=== PATIENT | female | born 1935 | race Caucasian/White ===

== ENCOUNTER 2019-07-19 06:37 | Outpatient (CLI) | payer MEDICARE, SELFPAY | END 2019-07-19 06:38 | disposition home or self-care (01) | PROVIDERS: Visit Provider Internal Medicine Endocrinology, Diabetes & Metabolism | DX: R94.7 Abnormal results of other endocrine function studies (principal) | CPT/HCPCS: 36415; 82533; 96372; J0834 ==

== ENCOUNTER 2019-11-03 16:19 | Emergency (ER) | payer MEDICARE, SELFPAY ==
[2019-11-03] VITALS (13 sets, daily range): BP systolic 145–179; BP diastolic 80–109; PULSE 61–89; RESP 12–20; TEMP 36.7–36.9; O2SAT 93–98
--- NOTE | ~2019-11-03 | CT_ITS ---
EXAMINATION: CT brain wo [facility] EXAM DATE: 11/03/2019 19:25 INDICATION: Headache, history of high blood pressure. TECHNIQUE: Spiral CT of the head was performed without contrast. Axial, coronal and sagittal images were reviewed. The dose-length product (DLP) for this examination was 605.33 mGy-cm. The exposure w as tailored according to patient size, and iterative reconstruction (ASIR) was used as additional dos e reduction technique. Comparison is made to prior examination from 03/26/2018. FINDINGS: There is no acute intraparenchymal hemorrhage. No evidence of intraparenchymal brain mass lesion. No evidence of acute infarction. Please note that initial head CT has limited sensitivity f or small or acute infarctions. There is mild periventricular and subcortical hypodensity, nonspecific but probably related to small vessel ischemic disease. There is moderate prominence of the sulci a nd ventricles related to cerebral atrophy. There is intracranial carotid arteriosclerosis. There a re no extra-axial collections. There is no mass effect or midline shift. Patient has had bilateral ocular lens surgery. Soft tissue is unremarkable. The visualized sinuses and mastoid air cells are well aerated. IMPRESSION: 1. No acute intracranial findings. 2. Chronic age related findings. Reviewed, dictated and finalized at location A.
--- NOTE | 2019-11-03 16:32 | ECG_ITS ---
Measurements Intervals [place] Rate: 80 P: 54 MS: 151 QRS: -6 QRSD: 86 T: 22 QT: 340 QTc: 393 Interpretive Statements SINUS RHYTHM WITH MARKED SINUS ARRHYTHMIA BASELINE ARTIFACT- I, III, AVL BORDERLINE ECG Electronically Signed On 11-03-2019 20:12:48 CDT by Nicolás Escobar D.O.
--- NOTE | 2019-11-03 18:24 | ED.RECABL ---
HPI - Recheck/Abnormal Lab/Rx General Chief Complaint: Recheck/Abnormal Lab/Rx Stated Complaint: feels off nausea, elevated bp Time Seen by Provider: 11/03/19 18:10 Source: patient Mode of arrival: ambulatory Limitations: no limitations History of Present Illness HPI narrative: This is a 84 year old female that presents to the ER for hypertension. Reports she was recently started on Losartan for hypertension. Reports she had been doing well and was taking her medication daily. Reports today her blood pressure has been elevated into the 160s/90s. Reports she has also had a headache. She has not taken anything for her headache. Denies fever, chest pain, shortness of breath, edema, vision changes, vomiting, numbness or weakness. Related Data Home Medications Medication Instructions Recorded Confirmed acidophilus-pectin, citrus cap PO 11/03/19 [Acidophilus Probiotic] albuterol sulfate 2 puff INHALATION QID 11/03/19 alendronate-vitamin D3 11/03/19 11/03/19 docosahexaenoic acid [Algal mg PO 11/03/19 [place]-3 DHA] fluticasone furoate-vilanterol 1 inh INHALATION DAILY 11/03/19 [Breo Ellipta] levothyroxine [Synthroid] 50 mcg PO DAILY 11/03/19 liothyronine 5 mcg PO DAILY 11/03/19 losartan 50 mg PO DAILY 11/03/19 montelukast 10 mg PO DAILY 11/03/19 sqhyiwketamx-yjf-tmrn-FA-vit K tablet PO 11/03/19 [Adults Multivitamin] prasterone (dhea) [DHEA] 25 mg PO DAILY 11/03/19 vitamin B complex 1 tablet PO DAILY 11/03/19 11/03/19 Allergies Allergy/AdvReac Type Severity Reaction Status Date / Time No Known Allergies Allergy Verified 03/18/18 07:53 Review of Systems Review of Systems: Narrative: CONSTITUTIONAL: Denies fever EYES: Denies visual changes CARDIOVASCULAR: Denies chest pain or edema RESPIRATORY: Denies shortness of breath GASTROINTESTINAL: Denies vomiting NEUROLOGIC: Reports headache. Denies numbness, or weakness. All systems reviewed & are unremarkable except as noted in HPI and below PMFSH Past Medical History Medical History (Updated 11/03/19 @ 20:08 by Awa Lawrence PA-C) History of hypertension History of hypothyroidism Exam Narrative: Exam Narrative: GENERAL: Elderly, well-nourished, and in no acute distress. HEAD: Normocephalic, atraumatic. EYES: PERRLA and EOMI. ENT: Nares clear, no rhinorrhea or epistaxis. Mucous membranes moist. Oropharynx without tonsillar hypertrophy exudate or other lesions. Bilateral TMs pearly hadley non-bulging NECK: Supple. No adenopathy or masses. CHEST: Clear to auscultation. No respiratory distress. No wheezes rales or rhonchi HEART: Regular rate and rhythm. No murmur heard. Normal peripheral pulses. EXTREMITIES: Normal range of motion. No edema. Strength equal in bilateral upper and lower extremities (5/5) SKIN: Warm, dry, no rash. NEURO: No focal deficits. Alert and oriented x3. Cranial nerves II through XII grossly intact. Normal [id number] PSYCH: Normal mood and affect Course Vital Signs Vital signs: Vital Signs Temperature 98.5 F 11/03/19 16:30 Pulse Rate 85 11/03/19 16:30 Respiratory Rate 20 11/03/19 16:30 Blood Pressure 179/109 H 11/03/19 16:30 Pulse Oximetry 97 11/03/19 16:30 Temperature 98.5 F 11/03/19 16:30 Pulse Rate 64 11/03/19 19:41 Respiratory Rate 16 11/03/19 19:41 Blood Pressure 153/90 H 11/03/19 19:41 Pulse Oximetry 96 11/03/19 19:41 MDM - Recheck/Abnormal Lab/Rx MDM Narrative Medical decision making narrative: Patient presents the emergency department for hypertension. Also reporting a headache today. Patient was recently started on losartan. On arrival blood pressure 180s/100s. This improved after dose of labetalol. Most recent blood pressure 153/90. Patient also given Tylenol and Toradol with relief of headache. Patient is afebrile and nontoxic-appearing. She is neurologically intact. CBC and metabolic panel without concerning findings. CT scan of the brain is without acute findings
[2019-11-03 18:35] LABS: Basophils Percent Auto 0.5 % (0.2-1.2); Eosinophils Absolute Auto 0.4 K/mm3 (0-0.3); Eosinophils Percent Auto 6.9 % (0-4.4); Hematocrit 41.5 % (37.0-47.0); Hemoglobin 13.5 g/dL (12.0-15.0); Immature Granulocyte Absolute 0.01 K/mm3 (0.00-0.031); Immature Granulocyte Percent A 0.2 % (0-0.5); Lymphocytes Absolute Auto 1.46 K/mm3 (0.9-3.2); Lymphocytes Percent Auto 23.6 % (18.3-44.2); Mean Corpuscular HGB Conc 32.5 g/dl (32-36); Mean Corpuscular Hemoglobin 29.9 pg (26-34); Mean Corpuscular Volume 91.8 fl (80-100); Mean Platelet Volume 9.4 fl (7.4-10.4); Monocytes Absolute Auto 0.5 K/mm3 (0.1-0.6); Monocytes Percent Auto 7.9 % (2.6-8.5); Neutrophils Absolute Auto 3.8 K/mm3 (1.3-6.7); Neutrophils Percent Auto 60.9 % (45.5-73.1); Platelet Count Result 288 k/mm3 (150-375); Red Blood Count 4.52 M/mm3 (4.2-5.4); Red Cell Distribution Width 12.4 % (11.5-14.5); White Blood Count 6.2 K/mm3 (4.5-10.0)
[2019-11-03] MEDS: LABETALOL HCL INJ 100 MG/20 ML VIAL 20 MG IV PUSH (18:35)
[2019-11-03] MEDS: KETOROLAC 30 MG/ML VIAL (*BKC) (18:35)
[2019-11-03 18:48] LABS: Anion Gap 8 mmol/L (8-16); Blood Urea Nitrogen 18 mg/dL (7-17); Calcium 9.3 mg/dL (8.4-10.2); Carbon Dioxide 25 mmol/L (22-30); Chloride 102 mmol/L (98-107); Estimated CRCL calculation 40 ml/min; Estimated Glomerular Filt Rate 60; Glucose 84 mg/dL (65-105); Potassium 4.5 mmol/L (3.4-5.0); Sodium 135 mmol/L (137-145)
== END 2019-11-03 20:16 | disposition home or self-care (01) ==
PROVIDERS: Physician Assistant; Emergency Provider Emergency Medicine; PCP Nurse Practitioner Family
DX: I10 Essential (primary) hypertension (principal); R51 Headache; E03.9 Hypothyroidism, unspecified
CPT/HCPCS: 36415; 70450; 80048; 85025; 93005; 96374; 96375; 99284; J0131; J1885

== ENCOUNTER 2020-08-26 17:37 | Emergency (ER) | payer MEDICARE, SELFPAY ==
[2020-08-26] VITALS (9 sets, daily range): BP systolic 138–198; BP diastolic 63–113; PULSE 66–92; RESP 13–16; O2SAT 95–99
--- NOTE | ~2020-08-26 | CT_ITS ---
EXAMINATION: CT brain wo con DATE: 08/26/2020 18:54 INDICATION: Dizziness. Vertigo. Nausea and vomiting. TECHNIQUE: Computed tomography (CT) of the head was performed without intravenous contrast. The mA wa s adjusted according to patient size. Iterative reconstruction technique was employed. Exam dose: 60 5.33 mGy-cm total exam DLP. COMPARISON: 11/03/2019 CT brain FINDINGS: Bilateral carotid siphon internal carotid artery calcifications. There is nonspecific dimin ished attenuation of the cerebral white matter, likely due to chronic small vessel ischemic changes. No intracranial mass lesion or hemorrhage or recent cerebrovascular accident is evident. No midline s hift or mass effect effect. No subdural or epidural hematoma. No fracture or bone destruction of the cranial vault. No significant abnormality of the paranasal sinuses or mastoid air cells and included in the examinat ion. No fracture or bone destruction of the cranial vault. IMPRESSION: Cerebral atherosclerosis and chronic small vessel ischemic changes of the cerebral white matter No acute intracranial finding or significant change since 11/03/2019 Reviewed, dictated and finalized at [facility]. Reviewed, dictated and finalized at location A.
--- NOTE | ~2020-08-26 | CT_ITS ---
EXAMINATION: CT abdomen pelvis wo con DATE: 08/26/2020 18:54 INDICATION: Left abdominal pain, nausea, vomiting TECHNIQUE: Computed tomography (CT) of the abdomen and pelvis was performed without intravenous contr ast. Automated exposure control and iterative reconstruction technique were employed. Exam dose: 600 .96 mGy-cm total exam DLP. COMPARISON: None. 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 Discoid scarring in the right lower lobe and base of the lingula. No consolidation at the lung bases. Heart size is within normal range. No pericardial or pleural effusion. The liver, gallbladder, bile ducts, spleen, pancreas, pancreatic duct and adrenal glands are unremark able. No urinary tract calculus or hydroureteronephrosis. There is extensive calcification of the abdominal aorta but no aneurysm. No intraperitoneal or retrop eritoneal or pelvic mass lesion or adenopathy or ascites. The uterus is unremarkable. Status post hysterectomy. No bowel obstruction, bowel wall thickening, pneumatosis or intraperitoneal free air is evident. Mild anterior wedge compression fracture deformity of T10. Multilevel degenerative disc disease most pronounced at L2-3, L4-5 and particularly L5-S1. There is grade 1 anterolisthesis at L4-5 due to degenerative change at the apophyseal joints. Diffuse osteopenia. Bilateral hip osteoarthritis, more prominent on the left. IMPRESSION: Status post hysterectomy Reviewed, dictated and finalized at [facility]. Reviewed, dictated and finalized at location A. IMPRESSION: Status post hysterectomy
--- NOTE | 2020-08-26 18:05 | ECG_ITS ---
Measurements Intervals [place] Rate: 77 P: 55 OR: 153 QRS: 11 QRSD: 94 T: 43 QT: 373 QTc: 423 Interpretive Statements SINUS RHYTHM EARLY PRECORDIAL R/S TRANSITION BASELINE ARTIFACT- I, II, AVR, AVL, AVF, V1 BORDERLINE ECG Electronically Signed On 08-27-2020 7:36:57 CDT by Nicolás Escobar D.O.
[2020-08-26 18:24] LABS: Basophils Percent Auto 0.5 % (0.2-1.2); Eosinophils Absolute Auto 0.2 K/mm3 (0-0.3); Eosinophils Percent Auto 2.6 % (0-4.4); Hemoglobin 12.5 g/dL (12.0-15.0); Immature Granulocyte Absolute 0.03 K/mm3 (0.00-0.031); Immature Granulocyte Percent A 0.4 % (0-0.5); Lymphocytes Percent Auto 12.6 % (18.3-44.2); Mean Corpuscular HGB Conc 32.1 g/dl (32-36); Mean Corpuscular Hemoglobin 30.2 pg (26-34); Mean Corpuscular Volume 94.2 fl (80-100); Mean Platelet Volume 8.6 fl (7.4-10.4); Monocytes Absolute Auto 0.6 K/mm3 (0.1-0.6); Monocytes Percent Auto 7.7 % (2.6-8.5); Neutrophils Absolute Auto 6.1 K/mm3 (1.3-6.7); Neutrophils Percent Auto 76.2 % (45.5-73.1); Platelet Count Result 259 k/mm3 (150-375); Red Blood Count 4.14 M/mm3 (4.2-5.4); Red Cell Distribution Width 12.9 % (11.5-14.5)
[2020-08-26 18:36] LABS: Alanine Aminotransferase 18 U/L (4-35); Albumin Level 4.6 g/dL (3.5-5.1); Alkaline Phosphatase 53 U/L (38-126); Anion Gap 10 mmol/L (8-16); Aspartate Amino Transferase 31 U/L (14-36); Bilirubin,Total 0.9 mg/dL (0.2-1.3); Blood Urea Nitrogen 25 mg/dL (7-17); Calcium 9.6 mg/dL (8.4-10.2); Carbon Dioxide 25 mmol/L (22-30); Chloride 104 mmol/L (98-107); Estimated CRCL calculation 39 ml/min; Estimated Glomerular Filt Rate 43; Glucose 104 mg/dL (65-105); Lipase 119 U/L (23-300); Potassium 4.2 mmol/L (3.4-5.0); Sodium 139 mmol/L (137-145)
[2020-08-26] MEDS: ONDANSETRON INJ 4 MG/2 ML VIAL IV PUSH (18:40)
[2020-08-26] MEDS: SODIUM CHLORIDE 0.9% IV 1,000 ML 999 ML IV CONT (18:41)
--- NOTE | 2020-08-26 18:41 | ED.GENADULT ---
HPI - General Adult General Chief complaint: Nausea/Vomiting/Diarrhea Stated complaint: dizzy/nauseated Time Seen by Provider: 08/26/20 18:04 Source: patient, family and RN notes reviewed Limitations: no limitations History of Present Illness HPI narrative: Patient is 85 years old white female presented to the ED with her son complaining of sudden onset of massive diarrhea x1 episode early this morning. 1 hour prior to arrival to the emergency room patient got up to go to the bathroom suddenly developed severe dizziness, spinning, associated with nausea, diaphoresis and epigastric pain lasted for 45 minutes then resolved. Currently patient is asymptomatic. Patient is denying any fever, chills, chest pain, shortness of breath, back pain or headache. Patient denies focal neuro deficit Related Data Home Medications Medication Instructions Recorded Confirmed albuterol sulfate 2 puff INHALATION QID 11/03/19 02/16/20 alendronate-vitamin D3 11/03/19 02/16/20 fluticasone furoate-vilanterol 1 inh INHALATION DAILY 11/03/19 02/16/20 [Beny Guerra] montelukast 10 mg PO DAILY 11/03/19 02/16/20 vitamin B complex 1 tablet PO DAILY 11/03/19 02/16/20 aspirin 81 mg chewable tablet 81 mg PO DAILY 12/13/19 02/16/20 rosuvastatin 5 mg tablet 5 mg PO DAILY 12/13/19 02/16/20 amlodipine 5 mg tablet 5 mg PO DAILY 02/16/20 02/16/20 levothyroxine 75 mcg tablet 75 mcg PO DAILY 02/16/20 02/16/20 Allergies Allergy/AdvReac Type Severity Reaction Status Date / Time No Known Allergies Allergy Verified 08/26/20 18:03 Review of Systems Review of Systems: Narrative: CONSTITUTIONAL: Denies fever, chills, or sweats. EYES: Denies visual changes, redness, or discharge. ENT: Denies rhinorrhea, congestion, sore throat, or otalgia. CARDIOVASCULAR: Denies chest pain, palpitations, or edema. RESPIRATORY: Denies cough or dyspnea. GASTROINTESTINAL: Denies abdominal pain, nausea, vomiting, or diarrhea. GENITOURINARY: Denies dysuria or hematuria. SKIN: Denies rash or itching. MUSCULOSKELETAL: Denies back pain, joint pain, or myalgia. NEUROLOGIC: Denies headache, numbness, or weakness. PSYCHIATRIC: Denies anxiety or depression. [facility] Past Medical History Medical History Adult idiopathic generalized osteoporosis COPD (chronic obstructive pulmonary disease) H/O thyroid disease Heart disease History of hypertension History of hypothyroidism Obesity Surgical History Surgical History H/O hernia repair H/O: hysterectomy History of appendectomy Family History Family History Other Alzheimer's dementia without behavioral disturbance Cancer Cataracts, bilateral Heart disease Social History Social History Smoking status: Never smoker Alcohol intake: never Gender identity (if verbalized by the patient): Female Exam Narrative: Exam Narrative: General appearance: Well-developed, well-nourished Skin: Normal color Head: Normocephalic, nontraumatic Eyes: Clear conjunctiva ENT: Oropharynx normal, ears normal, nose normal Neck: Supple, nontender Chest and respiratory: Airway patent, no respiratory distress, no accessory muscle use Heart: Regular rate/rhythm Abdomen: Soft, nontender, no organomegaly, quiet bowel sounds Vascular: Normal peripheral pulses, normal capillary refill. Musculoskeletal: Normal range of motion, nontender back Neurologic: Alert and oriented ?3, [employer] is normal as tested, no gross motor deficit Course Course Emergency Course: Improved Vital Si
--- NOTE | 2020-08-26 18:46 | PC.NURSE ---
to ct scan
[2020-08-26 18:47] LABS: Troponin I < 0.012 ng/mL (0.000-0.034)
[2020-08-26 19:00] LABS: Lactic Acid Reflex 0.8 mmol/L (0.7-2.1)
[2020-08-26] MEDS: diazePAM (*CRX) 5 MG TABLET PO (19:02)
[2020-08-26] MEDS: MECLIZINE HCL 25 MG TABLET PO (19:02)
--- NOTE | 2020-08-26 19:12 | PC.NURSE ---
Took over care of pt at this time. Reminded pt of need for urine sample, pt requests 10 more min before attempting to void. Refusing straight catheterization at this time. Will follow up with pt. Urine cup at bedside.
[2020-08-26 19:44] LABS: Add Urine Microscopic? YES; Appearance Urine Cloudy (Clear); Bacteria Urine Trace /hpf; Bilirubin Urine Negative (Negative); Blood Urine Negative (Negative); Color Urine Amber (Yellow); Glucose Urine UA Negative (Negative); Ketones Urine 1+ mg/dL (Negative); Leukocyte Esterase Ur 1+ LEU/UL (Negative); Mucus Urine Rare /lpf; Nitrate Urine Negative (Negative); Protein Urine Negative (Negative); Specific Grav Ur 1.018 (1.001-1.035); Squamous Epithelial Cell Urine Rare /hpf (Few); Transitional Epi Cells Urine Rare /hpf (None Seen); Urobilinogen Urine Negative mg/dL (<2.0)
== END 2020-08-26 20:59 | disposition home or self-care (01) ==
PROVIDERS: Emergency Provider Emergency Medicine
DX: E86.0 Dehydration (principal); R42 Dizziness and giddiness; R10.9 Unspecified abdominal pain; G89.29 Other chronic pain; M81.8 Other osteoporosis without current pathological fracture; J44.9 Chronic obstructive pulmonary disease, unspecified; E03.9 Hypothyroidism, unspecified; I11.9 Hypertensive heart disease without heart failure; E66.9 Obesity, unspecified; Z68.21 Body mass index [BMI] 21.0-21.9, adult; R94.31 Abnormal electrocardiogram [ECG] [EKG]; I67.2 Cerebral atherosclerosis
CPT/HCPCS: 36415; 70450; 74176; 80053; 81001; 83605; 83690; 84484; 85025; 87086; 87088; 93005; 96361; 96374; 99284; A9270; J2405; J7030

== ENCOUNTER 2020-09-27 12:48 | Outpatient (CLI) | payer MEDICARE, SELFPAY ==
--- NOTE | 2020-09-27 12:52 | ECG_ITS ---
Measurements Intervals [place] Rate: 66 P: 66 NH: 145 QRS: 46 QRSD: 99 T: 25 QT: 363 QTc: 382 Interpretive Statements SINUS RHYTHM INCOMPLETE RIGHT BUNDLE BRANCH BLOCK BORDERLINE R WAVE PROGRESSION, ANTERIOR LEADS BASELINE ARTIFACT- III BORDERLINE ECG Electronically Signed On 09-27-2020 16:40:29 CDT by Nicolás Escobar D.O.
[2020-09-27 13:15] LABS: Hematocrit 39.6 % (35.0-42.0); Hemoglobin 12.8 g/dL (11.7-13.8); Mean Corpuscular HGB Conc 32.3 g/dL (32.0-36.0); Mean Corpuscular Hemoglobin 30.8 pg (27.0-31.0); Mean Corpuscular Volume 95.2 fL (78.0-102.0); Mean Platelet Volume 8.7 fl (9.2-11.8); Platelet Count Result 269 K/mm3 (150-420); Red Blood Count 4.16 M/mm3 (4.20-5.40); Red Cell Distribution Width 12.7 % (11.6-14.4); White Blood Count 6.6 K/mm3 (4.8-10.8)
[2020-09-27 13:48] LABS: Alanine Aminotransferase 26 U/L (14-59); Albumin Level 4.1 g/dL (3.4-5.0); Alkaline Phosphatase 58 U/L (46-116); Anion Gap 12 mmol/L (8-16); Aspartate Amino Transferase 15 U/L (15-37); Bilirubin,Total 1.1 mg/dL (0.00-1.00); Blood Urea Nitrogen 26 mg/dL (7-18); Calcium 8.8 mg/dL (8.5-10.1); Carbon Dioxide 27 mmol/L (21-32); Chloride 103 mmol/L (98-108); Estimated Glomerular Filt Rate 41; Glucose 85 mg/dL (70-99); Osmolality Calculated 297 mOsm/kg (285-295); Potassium 4.6 mmol/L (3.5-5.1); Sodium 142 mmol/L (136-145); Total Protein 7.1 g/dL (6.4-8.2)
[2020-09-27 14:15] LABS: Thyroid Stimulating Hormone Reflex 2.38 u/IU/mL (0.36-3.74)
== END 2020-09-27 12:49 | disposition home or self-care (01) ==
LOC: CHSLAB 12:52
PROVIDERS: PCP Family Medicine; Visit Provider Family Medicine
DX: R42 Dizziness and giddiness (principal); R68.89 Other general symptoms and signs; E11.9 Type 2 diabetes mellitus without complications
CPT/HCPCS: 36415; 80053; 84443; 85027; 93005

== ENCOUNTER 2020-10-09 08:04 | Outpatient (CLI) | payer MEDICARE, SELFPAY ==
--- NOTE | 2020-10-09 08:16 | EST_ITS ---
Patient Info Name: Doreen Leal Age: 84 years : 1935 Gender: Female Ht: 61 in Wt: 171 lbs BSA: 1.86 m2 HR: 58 bpm BP: 183 / 72 mmHg Heart Rhythm: Bradycardia Technical Quality: Excellent Exam Date: 10/09/2020 9:21 AM Exam Location: [facility] Patient Status: Outpatient Admit Date: 10/09/2020 Staff Ordering Physician: Florin Young DO Attending Provider: Florin Young DO Exercise Technologist: Rosalba Lowe CRT Exercise Physician: Bobbi Cline CEP Exam Type: CA stress robin w NM Study Info Indications Fatigue - ChestPressure - ALMODOVAR - A nuclear stress test was performed. History/Risk Factors Hypertension: Yes Chronic Lung Disease: Yes History/Risk Factors ALMODOVAR. Chest Pressure. Fatigue. Summary 1. 1. Negative lexiscan stress test for ischemic ST changes by ECG criteria. 2. 2. Baseline hypertension. 3. 3. Nuclear scan to follow and will be reported separately. Please correlate with it. Protocol: LEXISCAN Stress ECG Details Stage: REST Duration (min): 2 min : 9 sec HR (bpm): 61 SBP (mmHg): 183 DBP (mmHg): 72 Stage: REST Duration (min): 3 min : 46 sec HR (bpm): 56 SBP (mmHg): 183 DBP (mmHg): 72 Stage: STAGE 1 Duration (min): 0 min : 11 sec HR (bpm): 63 SBP (mmHg): 183 DBP (mmHg): 72 Stage: RECOVERY Duration (min): 0 min : 48 sec HR (bpm): 88 SBP (mmHg): 183 DBP (mmHg): 72 Stage: RECOVERY Duration (min): 1 min : 48 sec HR (bpm): 84 SBP (mmHg): 183 DBP (mmHg): 72 Stage: RECOVERY Duration (min): 2 min : 48 sec HR (bpm): 72 SBP (mmHg): 153 DBP (mmHg): 69 Stage: RECOVERY Duration (min): 3 min : 48 sec HR (bpm): 75 SBP (mmHg): 153 DBP (mmHg): 69 Stage: RECOVERY Duration (min): 4 min : 48 sec HR (bpm): 70 SBP (mmHg): 138 DBP (mmHg): 70 Stage: RECOVERY Duration (min): 5 min : 48 sec HR (bpm): 77 SBP (mmHg): 147 DBP (mmHg): 69 Stage: RECOVERY Duration (min): 6 min : 3 sec HR (bpm): 68 SBP (mmHg): 147 DBP (mmHg): 69 Rest HR: 56 bpm Peak HR: 90 bpm Rest Sys BP: 183 mmHg Peak Sys BP: 153 mmHg Max Pred HR: 138 bpm % Max Pred HR: 65 % Target HR: 117 bpm Max RPP: 13,770 bpm*mmHg BP Response: Resting hypertension with appropriate response to lexiscan Termination Reason: Completion of Protocol Cardiac Symptoms: None Total Time: 0 min : 11 sec Rest Garcia BP: 72 mmHg Peak Garcia BP: 69 mmHg Total Dose: 0.4 mg Resting ECG Sinus bradycardia, low voltage in diffuse leads, cannot r/o septal infarct, age indeterminate. Stress ECG None. Arrhythmias No arrhythmias were observed during the examination. Report Signatures
--- NOTE | 2020-10-09 11:56 | WPDCARIOSTRE ---
Nuclear Stress Test INDICATIONS Indications: Chest pain PROCEDURE Procedure Performed: Myocardial Perf Spect-Multi Procedure: Patient underwent a lexiscan stress test and immediately was injected with 33.9 mCi of cardiolyte. Multiple tomographic images were obtained. These are of good quality. There is evidence of moderate size, moderate severity apical perfusion defect, and small size, mild severity anterior perfusion defect during stress imaging. A separate resting images were obtained after patient was injected with 10.3 mCi of cardiolyte. Multiple tomographic images were obtained. These are of good quality. There is evidence of moderate size, moderate severity apical perfusion defect, and small size, mild severity anterior perfusion defect during stress imaging. CONCLUSION Conclusion: 1. Myocardial perfusion imaging demonstrating fixed anterior and apical perfusion defects suggestive of breast attenuation artifact. . 2. No evidence of reversible ischemia. 3. Left ventriculogram demonstrates normal measured ejection fraction of 72% with no wall motion abnormalities. 4. TID score is normal at 1.07.
== END 2020-10-09 08:05 | disposition home or self-care (01) ==
LOC: CHSCARD 08:05
PROVIDERS: PCP Family Medicine; Visit Provider Family Medicine
DX: R06.00 Dyspnea, unspecified (principal)
CPT/HCPCS: 78452; 93017; A9502; J2785

== ENCOUNTER 2020-10-17 09:41 | Outpatient (CLI) | payer MEDICARE, SELFPAY ==
[2020-10-19 21:29] LABS: H pylori, Urea Breath NOT DETECTED (NOT DETECTED)
== END 2020-10-17 09:42 | disposition home or self-care (01) ==
LOC: CHSLAB 09:43
PROVIDERS: PCP Family Medicine; Visit Provider Family Medicine
DX: R10.13 Epigastric pain (principal)
CPT/HCPCS: 83013

== ENCOUNTER 2020-10-23 09:11 | Outpatient (CLI) | payer MEDICARE, SELFPAY ==
--- NOTE | ~2020-10-23 | US_ITS ---
EXAMINATION: US abdomen limited DATE: 10/23/2020 09:36 INDICATION: Epigastric abdominal pain TECHNIQUE: Multiple grayscale and Doppler ultrasound images of the abdomen were obtained. COMPARISON: CT, 08/26/2020 FINDINGS: Bowel gas obscures visualization of the pancreas. The visualized portions of the pancreas a re unremarkable. The liver is normal with normal echogenicity and echotexture. No surface nodularity. Normal hepatopetal flow in the main portal vein. The gallbladder is normal with no abnormal wall thi ckening, pericholecystic fluid or stones. The normal common bile duct measures 3 mm. There was no son ographic Mckeon sign. No sonographic abnormality is identified with targeted imaging in the area of t he patient's abdominal pain. IMPRESSION: 1. No sonographic correlate for the patient's symptoms. Reviewed, dictated and finalized at location A.
== END 2020-10-23 09:12 | disposition home or self-care (01) ==
LOC: CHSIMG 09:13
PROVIDERS: PCP Family Medicine; Visit Provider Family Medicine
DX: R10.13 Epigastric pain (principal)
CPT/HCPCS: 76705

== ENCOUNTER 2021-06-27 12:21 | Outpatient (CLI) | payer MEDICARE, SELFPAY ==
[2021-06-27 12:32] LABS: Hematocrit 43.8 % (35.0-42.0); Hemoglobin 14.4 g/dL (11.7-13.8); Mean Corpuscular HGB Conc 32.9 g/dL (32.0-36.0); Mean Corpuscular Hemoglobin 31.9 pg (27.0-31.0); Mean Corpuscular Volume 97.1 fL (78.0-102.0); Mean Platelet Volume 8.7 fl (9.2-11.8); Platelet Count Result 282 K/mm3 (150-420); Red Blood Count 4.51 M/mm3 (4.20-5.40); Red Cell Distribution Width 12.2 % (11.6-14.4); White Blood Count 7.6 K/mm3 (4.8-10.8)
[2021-06-27 13:48] LABS: Alanine Aminotransferase 21 U/L (14-59); Albumin Level 4.1 g/dL (3.4-5.0); Alkaline Phosphatase 48 U/L (46-116); Anion Gap 4 mmol/L (8-16); Aspartate Amino Transferase 16 U/L (15-37); Bilirubin,Total 1.2 mg/dL (0.00-1.00); Blood Urea Nitrogen 24 mg/dL (7-18); Carbon Dioxide 31 mmol/L (21-32); Chloride 100 mmol/L (98-108); Cholesterol 265 mg/dL (0-200); Estimated Glomerular Filt Rate 44; Glucose 108 mg/dL (70-99); HDL Direct 77 mg/dL (40-60); LDL Cholesterol Calculated 175 mg/dL (<130); Osmolality Calculated 285 mOsm/kg (285-295); Potassium 4.8 mmol/L (3.5-5.1); Sodium 135 mmol/L (136-145); Thyroid Stimulating Hormone Reflex 1.79 u/IU/mL (0.36-3.74); Total Protein 7.3 g/dL (6.4-8.2); Triglycerides 66 mg/dL (0-150)
== END 2021-06-27 12:22 | disposition home or self-care (01) ==
LOC: CHSLAB 12:23
PROVIDERS: PCP Family Medicine; Visit Provider Family Medicine
DX: Z86.79 Personal history of other diseases of the circulatory system (principal); E11.9 Type 2 diabetes mellitus without complications; Z86.39 Personal history of other endocrine, nutritional and metabolic disease
CPT/HCPCS: 36415; 80053; 80061; 84443; 85027

== ENCOUNTER 2022-03-15 10:25 | Emergency (ER) | payer MEDICARE, SELFPAY ==
--- NOTE | 2022-03-15 10:30 | ED.FEVER ---
HPI - Fever General Chief Complaint: Upper Respiratory Infection Stated Complaint: body aches, fever, fatigue, abd pain Time Seen by Provider: 03/15/22 10:27 Source: patient and RN notes reviewed Mode of arrival: ambulatory Limitations: no limitations History of Present Illness MD elicited complaint: fever (subjective) and malaise Onset (ago): day(s) (3) Context: other(s) with similar symptoms Exacerbating factors: nothing Relieving factors: acetaminophen and ibuprofen Associated symptoms: chills, myalgias, headache, cough and nausea Treatments prior to arrival fever: acetaminophen and ibuprofen Related Data Home Medications Medication Instructions Recorded Confirmed albuterol sulfate 90 mcg/actuation 2 puff inhalation QID 11/03/19 03/15/22 aerosol inhaler montelukast 10 mg tablet 10 mg PO DAILY 11/03/19 03/15/22 vitamin B complex 1 tablet PO DAILY 11/03/19 03/15/22 fluticasone fur. 100 mcg-umeclid 1 inh inhalation DAILY 03/15/22 03/15/22 62.5 mcg-vilant 25 mcg inhalat.powder (Trelegy Ellipta) furosemide 20 mg tablet 20 mg PO DAILY 03/15/22 03/15/22 nitroglycerin 0.4 mg sublingual See Rx Instructions .Route .COMPLEX 03/15/22 03/15/22 tablet rosuvastatin 5 mg tablet 5 mg PO DAILY 03/15/22 03/15/22 Allergies Allergy/AdvReac Type Severity Reaction Status Date / Time Iodinated Contrast Media Allergy Unknown Unknown Verified 03/15/22 10:49 Review of Systems Review of Systems: All systems reviewed & are unremarkable except as noted in HPI and below PMFSH Past Medical History Medical History Adult idiopathic generalized osteoporosis COPD (chronic obstructive pulmonary disease) H/O thyroid disease Heart disease History of hypertension History of hypothyroidism Obesity Surgical History Surgical History H/O hernia repair H/O: hysterectomy History of appendectomy Family History Family History Other Alzheimer's dementia without behavioral disturbance Cancer Cataracts, bilateral Heart disease Social History Social History (Updated 03/15/22 @ 11:17 by Geovanny Gunderson MD) Smoking status: Former smoker Additional smoking assessment comments: Quit smoking in 1999 Alcohol intake: never Gender identity (if verbalized by the patient): Female Exam Const: General: healthy appearing, no acute distress and alert Nutritional Appearance: well nourished Orientation/consciousness: patient oriented x3 Limitations: no limitations HENMT: Head: normal to inspection Ears: external ears normal Face/Nose/Sinus: Normal external nose present Eyes: Conjunctivae: conjunctivae normal Pupils: Equal, round and reactive pupils present EOM: EOMs intact bilaterally Neck: Neck: normal visual inspection Resp: Effort & Inspection: normal respiratory effort Auscultation: clear to auscultation bilaterally Cardio: Rate: regular rate Rhythm: regular rhythm GI: GI Palp: Yes Soft to palpation and No Tenderness to palpation present (GI) Auscultation: normal bowel sounds Back/Spine/Pelvis: Cervical Spine: cervical ROM normal Thoracic/Lumbar Spine: thoraco-lumbar ROM normal Skin: General skin exam: normal color Rashes: no rashes Neuro: General: patient oriented x3, moves all extremities, no focal motor deficits and CN's II-XI intact bilaterally Speech: normal speech Gait exam (Neuro): Normal gait present Extrem: General: normal to inspection and no clubbing, cyanosis or edema Psych: Appearance: grossly normal and well kempt Mental Status: mental status grossly normal Affect: normal affect Attitude: cooperative Course Vital Signs Vital signs: Vital Signs Temperature 36.9 C 03/15/22 10:38 Pulse Rate 82 03/15/22 10:38 Respiratory Rate 20 03/15/22 10:38 Blood Pressure 122/85 03/15/22 10:38 Pulse Oximetry 96 03/15/22 10:38 Oxy
[2022-03-15 10:38] VITALS: BP 122/85; PULSE 82; RESP 20; TEMP 36.9; O2SAT 96
[2022-03-15 10:43] VITALS: O2SAT 96
[2022-03-15 11:18] LABS: Influenza A QL RT-PCR Negative (Negative); Influenza B QL RT-PCR Negative (Negative); SARS-CoV-2 RNA PCR Positive (Negative)
[2022-03-15] MEDS: PROMETHAZINE HCL 25 MG/ML AMPUL IM (12:11)
[2022-03-15 12:36] VITALS: BP 128/82; PULSE 82; RESP 20; TEMP 37; O2SAT 96
== END 2022-03-15 12:30 | disposition home or self-care (01) ==
PROVIDERS: Emergency Provider Emergency Medicine
DX: U07.1 COVID-19 (principal); I11.9 Hypertensive heart disease without heart failure; E03.9 Hypothyroidism, unspecified; J44.9 Chronic obstructive pulmonary disease, unspecified; Z87.891 Personal history of nicotine dependence
CPT/HCPCS: 87636; 96372; 99283; J2550

== ENCOUNTER 2022-03-22 16:20 | Emergency (ER) | payer MEDICARE, SELFPAY ==
--- NOTE | ~2022-03-22 | XR_ITS ---
EXAMINATION: XR chest 1V portable DATE: 03/22/2022 17:05 INDICATION: Shortness of breath. Cough. TECHNIQUE: A single frontal view of the chest was obtained. COMPARISON: Chest single view 03/18/2018, CT abdomen and pelvis 08/26/2020 FINDINGS: The chest demonstrates clear lungs without pneumonia, pleural effusion, or pneumothorax. Th e heart size is normal. IMPRESSION: 1. No acute cardiopulmonary disease. Reviewed, dictated and finalized at location A. [facility]
[2022-03-22 16:20] VITALS: BP 148/79; PULSE 93; RESP 18; TEMP 36.2; O2SAT 96
[2022-03-22 16:25] VITALS: O2SAT 96
--- NOTE | 2022-03-22 16:55 | ED.SOB ---
HPI - SOB/Dyspnea General Chief Complaint: Shortness of Breath/Dyspnea Stated Complaint: trouble breathing Time Seen by Provider: 03/22/22 16:39 Source: patient Mode of arrival: ambulatory Limitations: no limitations History of Present Illness HPI Narrative: 86-year-old female, ex-smoker with more than 50 pack year smoking history, COPD, HENRRY, hypertension, hypothyroidism, CKD, CAD/PR saw vat packer and was prescribed Trelegy in place of Breo. She was diagnosed with COVID on 03/15/2022 and prescribed Legevrio. She presents to the ER with -- cough with mucopurulent sputum -- worsening shortness of breath MD elicited complaint: shortness of breath and cough Pertinent past history: COPD Onset (ago): day(s) ( started 7 days ago.) Context: other ( Diagnosed with COVID on 03/15/2022.) Severity: moderate Exacerbating factors: nothing Relieving factors: nothing Known history of: COPD Associated symptoms: cough, wheezing and sputum production Treatment prior to arrival: none Related Data Home oxygen amount: none Home Medications Medication Instructions Recorded Confirmed albuterol sulfate 90 mcg/actuation 2 puff inhalation QID 11/03/19 03/22/22 aerosol inhaler montelukast 10 mg tablet 10 mg PO DAILY 11/03/19 03/22/22 vitamin B complex 1 tablet PO DAILY 11/03/19 03/22/22 fluticasone fur. 100 mcg-umeclid 1 inh inhalation DAILY 03/15/22 03/22/22 62.5 mcg-vilant 25 mcg inhalat.powder (Trelegy Ellipta) furosemide 20 mg tablet 20 mg PO DAILY 03/15/22 03/22/22 nitroglycerin 0.4 mg sublingual See Rx Instructions .Route .COMPLEX 03/15/22 03/22/22 tablet rosuvastatin 5 mg tablet 5 mg PO DAILY 03/15/22 03/22/22 Allergies Allergy/AdvReac Type Severity Reaction Status Date / Time Iodinated Contrast Media Allergy Unknown Unknown Verified 03/15/22 10:49 Review of Systems Review of Systems: All systems reviewed & are unremarkable except as noted in HPI and below Constitutional: Constitutional: Reports as per HPI and Reports no additional constitutional complaints Eyes: Eyes: Reports as per HPI and Reports no additional eye complaints ENT: Reports system reviewed and no additional complaints, except as documented and Reports as per HPI Cardiovascular: Cardiovascular: Reports as per HPI and Reports no additional cardiovascular complaints Respiratory: Respiratory: Reports as per HPI, Reports no additional respiratory complaints, Reports cough, Reports excessive phlegm production and Reports dyspnea Gastrointestinal: Gastrointestinal: Reports as per HPI and Reports no additional gastrointestinal complaints Genitourinary: Genitourinary: Reports no additional female genitourinary complaints and Reports as per HPI Musculoskeletal: Musculoskeletal: Reports no additional musculoskeletal complaints and Reports as per HPI Integumentary/Breasts: Skin/Breast: Reports system reviewed and no additional complaints, except as docu and Reports as per HPI Neurologic: Reports system reviewed and no additional complaints, except as documented and Reports as per HPI Psychiatric: Psychiatric: Reports no additional psychiatric complaints and Reports as per HPI Endocrine: Endocrine: Reports no additional endocrine complaints and Reports as per HPI Hematologic/Lymphatic: Hematologic/Lymphatic: Reports no additional hematologic/lymphatic complaints and Reports as per HPI Allergic/Immunologic: Allergic/Immunologic: Reports no additional allergic/immunologic complaints and Reports as per HPI [facility] Past Medical History Medical History Adult idiopathic generalized osteoporosis COPD (chronic obstructive pulmonary disease) H/O thyroid disease Heart disease History of hypertension History of hypothyroidism Obesity Surgical History Surgical History H/O hernia repair H/O: hysterectomy History of appendectomy Family History Fami
--- NOTE | 2022-03-22 17:11 | ECG_ITS ---
Measurements Intervals [place] Rate: 81 P: 66 RI: 151 QRS: 30 QRSD: 89 T: 31 QT: 361 QTc: 419 Interpretive Statements SINUS RHYTHM NORMAL ELECTROCARDIOGRAM COMPARED TO ECG 09/27/2020 13:16:28 APPARENTLY SLIGHTLY DIFFERENT PRECORDIAL LEAD POSITION Electronically Signed On 03-23-2022 9:57:39 [employer] by Rob Celaya M.D.
[2022-03-22 17:18] LABS: Basophils Absolute Auto 0.02 K/mm3 (0.00-0.10); Basophils Percent Auto 0.3 % (0.0-1.0); Eosinophils Absolute Auto 0.13 K/mm3 (0.02-0.50); Eosinophils Percent Auto 2.1 % (1.0-6.0); Hematocrit 39.8 % (35.0-42.0); Immature Granulocyte Absolute 0.02 K/mm3 (0.00-0.00); Immature Granulocyte Percent A 0.3 % (0.0-0.0); Lymphocytes Absolute Auto 1.31 K/mm3 (1.10-4.50); Lymphocytes Percent Auto 21.4 % (18.0-42.0); Mean Corpuscular HGB Conc 32.7 g/dL (32.0-36.0); Mean Corpuscular Hemoglobin 30.7 pg (27.0-31.0); Mean Corpuscular Volume 93.9 fL (78.0-102.0); Monocytes Absolute Auto 0.52 K/mm3 (0.10-0.90); Monocytes Percent Auto 8.5 % (2.0-11.0); Neutrophils Absolute Auto 4.1 K/mm3 (1.7-7.2); Neutrophils Percent Auto 67.4 % (50.0-70.0); Platelet Count Result 257 K/mm3 (150-420); Red Blood Count 4.24 M/mm3 (4.20-5.40); Red Cell Distribution Width 12.2 % (11.6-14.4); White Blood Count 6.1 K/mm3 (4.8-10.8)
[2022-03-22 17:31] LABS: D Dimer 0.37 mg/L (0.19-0.50)
[2022-03-22 17:40] LABS: Anion Gap 8 mmol/L (8-16); Blood Urea Nitrogen 23 mg/dL (7-18); Calcium 8.6 mg/dL (8.5-10.1); Carbon Dioxide 30 mmol/L (21-32); Chloride 99 mmol/L (98-108); Estimated CRCL calculation 30 ml/min; Estimated Glomerular Filt Rate 45; Glucose 99 mg/dL (70-99); NT Pro B Type Natriuretic Pept 320 pg/mL (0-450); Osmolality Calculated 287 mOsm/kg (285-295); Potassium 3.6 mmol/L (3.5-5.1); Sodium 137 mmol/L (136-145)
[2022-03-22 17:43] LABS: Influenza Control Valid (Valid)
[2022-03-22 18:00] VITALS: BP 141/72; PULSE 74; RESP 18; O2SAT 97
== END 2022-03-22 18:15 | disposition home or self-care (01) ==
PROVIDERS: Emergency Provider Internal Medicine Critical Care Medicine
DX: J44.9 Chronic obstructive pulmonary disease, unspecified (principal); G47.33 Obstructive sleep apnea (adult) (pediatric); E03.9 Hypothyroidism, unspecified; I25.10 Atherosclerotic heart disease of native coronary artery without angina pectoris; I25.2 Old myocardial infarction; I13.0 Hypertensive heart and chronic kidney disease with heart failure and stage 1 through stage 4 chronic kidney disease, or unspecified chronic kidney disease; N18.9 Chronic kidney disease, unspecified; Z79.51 Long term (current) use of inhaled steroids; M81.0 Age-related osteoporosis without current pathological fracture; Z87.891 Personal history of nicotine dependence
CPT/HCPCS: 36415; 71045; 80048; 83880; 84484; 85025; 85380; 87804; 93005; 99284